=== PATIENT | male | born 1960 | race African-American/Black ===

== ENCOUNTER 2023-10-29 14:22 | Emergency (ER) | payer OTHER ==
[~2023-10-29] VITALS: Ht 182.9 cm; Wt 85.0 kg
[2023-10-29 14:31] VITALS: BP 88/64; PULSE 88; RESP 18; TEMP 98.7; O2SAT 99
[2023-10-29] MEDS ORDERED: SODIUM CHLORIDE 0.9% 1000ML BAG (SEPSIS BOLUS) IV ONE (14:45)
[2023-10-29] MEDS ORDERED: PIPERACILLIN/TAZO 3.375G/50ML 50 ML IV ONE (14:45)
[2023-10-29] MEDS ORDERED: VANCOMYCIN 1G PREMIX 200 ML IV ONE (14:45)
[2023-10-29 15:22] LABS: BASOPHILS % 0.9 % (0.0-2.0); EOSINOPHILS % 1.3 % (0.0-5.0); HEMATOCRIT. 36.1 % (42.0-52.0); HEMOGLOBIN. 11.4 g/dL (14.0-18.0); LYMPHOCYTES % 46.5 % (20.0-50.0); MEAN CORPUSCULAR HGB CONC 31.6 g/dL (31.0-37.0); MEAN CORPUSCULAR VOLUME 82.2 fL (80.0-94.0); MEAN PLATELET VOLUME 7.6 fl (7.4-10.4); MONOCYTES % 9.1 % (2.0-8.0); NEUTROPHILS % 42.2 % (40.0-76.0); PLATELET 317 x1000/uL (130-400); RED BLOOD CELL COUNT 4.39 mill/uL (4.7-6.1); RED CELL DISTRIBUTION WIDTH 16.3 % (11.6-14.6); WHITE BLOOD COUNT 2.5 x1000/uL (4.5-11.0)
[2023-10-29 15:26] LABS: DIFFERENTIAL COMMENT 1
[2023-10-29 15:29] LABS: INR 1.2; PROTHROMBIN TIME 12.3 sec (9.6-11.0)
[2023-10-29 15:35] LABS: ALANINE AMINOTRANSFERASE 37 IU/L (10-49); ALBUMIN 4.2 g/dL (3.2-4.8); ASPARTATE AMINOTRANSFERASE 24 IU/L (<34); BILIRUBIN TOTAL 0.4 mg/dL (0.1-1.0); CARBON DIOXIDE 19 mEq/L (21-32); CHLORIDE 106 mEq/L (98-107); CREATININE 2.2 mg/dL (0.6-1.3); GLUCOSE 130 mg/dL (70-105); POTASSIUM 3.8 mEq/L (3.5-5.1); PROTEIN TOTAL 8.7 g/dL (6.0-8.3); SODIUM 139 mEq/L (136-145); UREA NITROGEN BLOOD 34 mg/dL (9-23)
[2023-10-29] MEDS ORDERED: CEFTRIAXONE 1GM PREMIX 50 ML IV ONE (16:00)
[2023-10-29] MEDS ORDERED: CEFTRIAXONE 1GM PREMIX 50 ML IV NR (16:00)
[2023-10-29] MEDS ORDERED: PIPERACILLIN/TAZO 3.375G/50ML 50 ML IV NR (22:00)
[2023-10-29] MEDS ORDERED: IOHEXOL-300 100 ML BOTTLE ONE (22:17)
[2023-10-29] MEDS ORDERED: PROT40 MT (23:43)
[2023-10-29] MEDS ORDERED: MAG355OR21 MT (23:43)
[2023-10-29] MEDS ORDERED: FAMOTIDINE 20MG/2ML VIAL IV ONE (23:45)
[2023-10-30] MEDS ORDERED: IOHEXOL-300 100 ML BOTTLE ONE (03:05)
== END 2023-10-29 23:58 | disposition home or self-care (01) ==
LOC: ER 14:22
DX: R53.1 Weakness (principal); K29.70 Gastritis, unspecified, without bleeding; I95.9 Hypotension, unspecified
CPT/HCPCS: 99291; 74177; 96365; 71045; 80053; 83605; 85025; 85610; 86850; 86900; 86901; 87040; 36415; 84145; 93005; Q9967; J0696; J2543; J7030